=== PATIENT | male | born 1995 | race Caucasian/White ===

== ENCOUNTER 2018-03-06 02:00 | Day surgery (SDC) | payer OTHER ==
[2018-03-06] VITALS (9 sets, daily range): BP systolic 103–141; BP diastolic 65–89
[~2018-03-06] VITALS: Ht 182.9 cm; Wt 60.8 kg
[2018-03-06] MEDS: NORMOSOL R SOLN(*) 1000 ML BAG 1,000 ML IV PRN ×2 (06:12→10:15)
[2018-03-06] MEDS ORDERED: ceFAZolin(*) 1 GM VIAL 1 GM in NS(*) 0.9% 100 ML ADDVANT BAG 100 ML IV ONE (06:30)
[2018-03-06] MEDS ORDERED: FAMOTIDINE 20 MG TAB PO ONE (06:30)
[2018-03-06] MEDS ORDERED: LIDOCAINE/SOD BICARB 8.4% SYR ID ONE (06:30)
[2018-03-06] MEDS ORDERED: MIDAZOLAM 2 MG/2 ML VIAL IVP PRN (06:30)
[2018-03-06 06:51] LABS: PLATELET COUNT, AUTOMATED 235 K/uL (150-450)
[2018-03-06] MEDS ORDERED: BUPIVACAINE 0.5% INJ 50ML VIAL INFIL ONE (07:15)
[2018-03-06] MEDS ORDERED: fentaNYL CITR 100 MCG/2 ML AMP ONE ×3 (07:18→10:06)
[2018-03-06] MEDS ORDERED: PROPOFOL EMUL(*) 10MG/ML 20 ML 20 ML ONE (07:19)
[2018-03-06] MEDS ORDERED: ONDANSETRON 4 MG/2 ML VIAL ONE (07:19)
[2018-03-06] MEDS ORDERED: ROCURONIUM BROM 10 MG/ML 10 ML ONE (07:19)
[2018-03-06] MEDS ORDERED: LIDOCAINE MPF 1% 5 ML VIAL ONE (07:19)
[2018-03-06] MEDS ORDERED: BUPIV/EPI 0.25% 1:200,000 50ML INFIL ONE (07:44)
[2018-03-06] MEDS ORDERED: SUGAMMADEX SOD 500 MG/5 ML SDV ONE (09:42)
[2018-03-06] MEDS ORDERED: KETOROLAC 30 MG/ML VIAL ONE (09:42)
--- NOTE | 2018-03-06 10:21 | Post Operative Note ---
Operative Note - ENT Operative Day Date: Mar 06, 2018 Time: 10:16 Physicians Surgeon: Oliver Harkins MD, FACS [employer] Chief: None Anesthesia: GETA Diagnosis Pre-Op Diagnosis: Right Inguinal Hernia - reducible Post-Op Diagnosis: Same Procedure Findings: indirect hernia Procedure(s): Right Inguinal Hernia repair with Ventrio ST pre-peritoneal mesh Description Placed in a supine position with arms extended. Prep and drape after induction of anesthesia. Time-out performed. 0.25% Marcaine with epinephrine injected for regional ilioinguinal nerve block and over incision site. 3cm incision made at midpoint of the ilioinguinal ligament. Muscle splitting technique used to enter the pre-peritoneal space. Spermatic cord identified. Indirect hernia sac densely adherent to the cord structures. Hernia sac resected with 3-0 vicryl at base. [id number] Ventrio ST mesh placed in pre-peritoneal pocket. Secured to the transversalis fascia using 2-0 PDS. Internal and External Oblique repaired with 2-0 PDS. Subcutaneous layer and skin closed with 4-0 monocryl. Dermabond on the skin. Extubated and to recovery room in good condition. Specimen Removed:(Maybe N/A): None Complications: None Fluids Fluids: 1000ml Estimated Blood Loss: 5ml OLIVER HARKINS MD Mar 06, 2018 10:21
[2018-03-06] MEDS ORDERED: HYDR-385 PO (10:46)
[2018-03-06] MEDS ORDERED: APAP/HYDROCODONE 325/5 TAB ONE (10:51)
[2018-03-08] MEDS ORDERED: HYDR-385 PO (17:14)
== END 2018-03-06 11:05 | disposition home or self-care (01) ==
LOC: OR 02:00
PROVIDERS: ATTEND Surgery
DX: K40.90 Unilateral inguinal hernia, without obstruction or gangrene, not specified as recurrent (principal)
CPT/HCPCS: 36415; 49505; 85025; J0690; J1885; J2001; J2405; J2704; J3010; J7050; J3490